=== PATIENT | female | born 1985 | race Caucasian/White ===

== ENCOUNTER 2016-08-04 16:57 | Emergency (ER) | payer MEDICAID ==
[~2016-08-04] VITALS: Ht 165.1 cm; Wt 84.4 kg
[~2016-08-04 16:57] MED LIST: NITR-104 PO; VIC PO
[2016-08-04 17:14] VITALS: BP 114/69
--- NOTE | 2016-08-04 17:15 | NUR ---
PATIENT PRESENTS TO ED WITH C/O LEFT LEG PAIN; PER PT TAKING A SHOWER BURST VEIN; 1ST HAPPENS ON LAST MONTH; HX; DENIES RX; DENIES DENIES N/V/D; SKIN IS PINK/WARM/DRY; AAOX4 WITH EVEN AND STEADY GAIT; LUNGS CLEAR BL; HR EVEN AND REGULAR; PT DENIES ANY FEVER, CP, SOB, OR COUGH AT THIS TIME; PATIENT STATES PAIN OF 8/10 AT THIS TIME; VSS; PATIENT POSITIONED FOR COMFORT; HOB ELEVATED; BEDRAILS UP X2; BED DOWN. ER MD MADE AWARE OF PT STATUS.
[2016-08-04 18:30] VITALS: BP 121/71
--- NOTE | 2016-08-04 18:30 | NUR ---
Patient discharged with v/s stable. Written and verbal after care instructions given and explained. Patient verbalized understanding. Ambulatory with steady gait. All questions addressed prior to discharge. Advised to follow up with PMD.
== END 2016-08-04 18:30 | disposition home or self-care (01) ==
LOC: MED 16:57
CPT/HCPCS: 99283